=== PATIENT | male | born 1945 | race Caucasian/White ===

== ENCOUNTER 2016-08-02 07:15 | Day surgery (SDC) | payer MEDICARE ==
[2016-08-02] MEDS ORDERED: ceFAZolin 1 GM VIAL ONE ×2 (07:27→07:47)
[2016-08-02] MEDS ORDERED: LACTATED RINGERS 1,000 ML IV ONE (07:43)
[2016-08-02] MEDS ORDERED: fentaNYL 250 MCG/5 ML VIAL IVP ONE (08:21)
[2016-08-02] MEDS ORDERED: MIDAZOLAM 2 MG/2 ML VIAL IVP ONE (08:21)
== END 2016-08-02 07:16 | disposition home or self-care (01) ==
PROC: 0DJD8ZZ Inspection of Lower Intestinal Tract, Via Natural or Artificial Opening Endoscopic (ICD-10-PCS; principal; 2016-08-02 08:30)
DX: Z12.11 Encounter for screening for malignant neoplasm of colon (principal); K64.8 Other hemorrhoids; Z85.46 Personal history of malignant neoplasm of prostate
CPT/HCPCS: G0121; J3010; J7120

== ENCOUNTER 2018-06-17 16:36 | Outpatient (CLI) | payer MEDICARE ==
--- NOTE | 2018-06-17 22:45 | Ultrasound Report ---
Reason: PAIN IN RIGHT LOWER LEG Procedure Date: 06/17/2018 Accession Number: [id number] / [id number] Procedure: US - Duplex Ext Veins Right CPT Code: FULL RESULT: EXAM: RIGHT LOWER EXTREMITY VENOUS ULTRASOUND EXAM DATE: 06/17/2018 05:12 PM. CLINICAL HISTORY: Right lower extremity pain COMPARISON: None. TECHNIQUE: Real-time sonographic vascular imaging was performed by the data integrity consultant through the lower extremity utilizing both color-flow and Doppler spectral analysis. Multiple manufacturers representative static images were saved for review. FINDINGS: Common Femoral Vein (CFV): Normal. CFV-GSV Junction: Normal. Profunda Femoral Vein (PFV): Normal. Femoral Vein (FV) Prox: Normal. Femoral Vein (FV) Mid: Normal. Femoral Vein (FV) Dist: Normal. Popliteal Vein: Normal. Posterior Tibial Veins: Normal. Peroneal Veins: Normal. Other: None. IMPRESSION: No evidence for deep venous thrombosis. RADIA
== END 2018-06-17 16:37 | disposition home or self-care (01) ==
LOC: DI 16:36
PROVIDERS: ATTEND Internal Medicine
DX: M79.661 Pain in right lower leg (principal)

== ENCOUNTER 2018-10-15 | Emergency (ER) | payer MEDICARE ==
[2018-10-15 00:34] LABS: BASOPHILS # (AUTO) 0.1 10^3/uL (0.0-0.1); BASOPHILS % (AUTO) 0.5 %; EOSINOPHILS % (AUTO) 0.1 %; HGB - HEMOGLOBIN 16.4 g/dL (14.0-18.0); LYMPHOCYTES # (AUTO) 0.6 10^3/uL (1.5-3.5); MEAN CORPUSCULAR HEMOGLOBIN 30.9 pg (27.0-31.0); MEAN CORPUSCULAR HGB CONC 34.6 g/dL (32.0-36.0); MEAN CORPUSCULAR VOLUME 89.3 fL (80.0-94.0); MEAN PLATELET VOLUME 7.2 fL (7.4-11.4); MONOCYTES # (AUTO) 0.5 10^3/uL (0.0-1.0); MONOCYTES % (AUTO) 3.3 %; NEUTROPHILS # (AUTO) 12.9 10^3/uL (1.5-6.6); NEUTROPHILS % (AUTO) 92.1 %; PLT - PLATELET COUNT 239 10^3/uL (130-450); RED BLOOD COUNT 5.29 10^6/uL (4.70-6.10); RED CELL DISTRIBUTION WIDTH 13.5 % (12.0-15.0)
--- NOTE | 2018-10-15 00:50 | ED Physician Documentation ---
PD HPI NVD - Stated complaint Stated Complaint: VOMITING - Chief complaint Chief Complaint: Abd Pain - History obtained from History obtained from: Patient - History of Present Illness Timing - onset: Enter time (19:00) Timing - details: Abrupt onset, Waxing and waning Pain level now: 3 Associated symptoms: Abdominal pain (cramping). No: Fever Improved by: No: Eating, Laying still, Vomiting, BM, Position, Meds Worsened by: No: Eating, Moving, Breathing, Position, Palpation Similar symptoms before: Has not had sx before Recently seen: Not recently seen - Additonal information Additional information: since 7 PM, has had waves of nausea, vomiting, and diarrhea with mild abdominal cramping. Review of Systems Constitutional: reports: Reviewed and negative Cardiac: reports: Reviewed and negative Respiratory: reports: Reviewed and negative GI: reports: Abdominal Pain, Nausea, Vomiting, Diarrhea : denies: Dysuria, Frequency Musculoskeletal: reports: Reviewed and negative Neurologic: reports: Reviewed and negative PD PAST MEDICAL HISTORY - Past Medical History Past Medical History: Yes Cardiovascular: Murmur, Valve disorder Respiratory: None Endocrine/Autoimmune: None GI: None : Other HEENT: Chronic vision loss Psych: None Musculoskeletal: None Derm: None - Past Surgical History Past Surgical History: Yes General: Colonoscopy Cardiovascular: Valve replacement - Present Medications Home Medications: Ambulatory Orders Medication Instructions Recorded Confirmed Aspirin [Aspir-Low] 162 mg PO DAILY 10/26/15 10/15/18 Ondansetron Odt [Zofran] 4 mg TL Q6H PRN #10 tablet 10/15/18 - Allergies Allergies/Adverse Reactions: Allergies Allergy/AdvReac Type Severity Reaction Status Date / Time No Known Drug Allergies Allergy Verified 10/15/18 00:09 - Social History Does the pt smoke?: No Smoking Status: Never smoker Does the pt drink ETOH?: No Does the pt have substance abuse?: No - Immunizations Immunizations are current?: Yes - POLST Patient has POLST: No PD ED PE NORMAL - Vitals Vital signs reviewed: Yes - General General: Alert and oriented X 3, No acute distress, Well developed/nourished - HEENT HEENT: Moist mucous membranes - Neck Neck: Supple, no meningeal sign, No JVD - Cardiac Cardiac: RRR, No murmur, No gallop, No rub - Respiratory Respiratory: No respiratory distress, Clear bilaterally - Abdomen Abdomen: Normal bowel sounds, Soft, Non tender, Non distended, No organomegaly - Back Back: No CVA TTP - Extremities Extremities: No edema - Neuro Neuro: Alert and oriented X 3 Results - Vitals Vitals: Oxygen O2 Source Room air - Labs Labs: Laboratory Tests 10/15/18 10/15/18 10/15/18 00:30 00:30 01:45 WBC 14.0 H RBC 5.29 Hgb 16.4 Hct 47.2 MCV 89.3 MCH 30.9 MCHC 34.6 RDW 13.5 Plt Count 239 MPV 7.2 L Neut # (Auto) 12.9 H Lymph # (Auto) 0.6 L [place] # (Auto) 0.5 Eos # (Auto) 0.0 Baso # (Auto) 0.1 Absolute Nucleated RBC 0.00 Nucleated RBC % 0.0 Sodium 135 Potassium 3.9 Chloride 100 L Carbon Dioxide 23 Anion Gap 12.0 BUN 22 H Creatinine 0.9 Estimated GFR (MDRD) 83 L Glucose 117 H Calcium 9.3 Total Bilirubin 1.2 H AST 37 ALT 44 Alkaline Phosphatase 88 Total Protein 7.2 Albumin 4.6 Globulin 2.6 Albumin/Globulin Ratio 1.8 Lipase 26 Urine Color YELLOW Urine Clarity CLEAR Urine pH 7.5 Ur Specific [place] 1.015 Urine Protein TRACE Urine Glucose (UA) NEGATIVE Urine Ketones 40 H Urine Occult Blood NEGATIVE Urine Nitrite NEGATIVE Urine Bilirubin NEGATIVE Urine Urobilinogen 0.2 (NORMAL) Ur Leukocyte Esterase NEGATIVE Ur Microscopic Review NOT INDICATED Urine Culture Comments NOT INDICATED PD MEDICAL DECISION MAKING - ED course Complexity details: reviewed results, re-evaluated patient, considered differential, d/w patient, d/w family Departure - Departure Disposition: 01 Home, Self Care Clinical Impression: Gastroenteritis Condition: Good Instructions: ED Gastroenteritis Viral Follow-Up: Boone Rangel MD [Primary Care Provider] - Prescriptions: Ondansetron Odt [Zofran] 4 mg TL Q6H PRN #10 tablet PRN Reason: Nausea / Vomiting Discharge Date/Time: 10/15/18 02:40
[2018-10-15 01:07] LABS: ALBUMIN 4.6 g/dL (3.2-5.5); ALBUMIN/GLOBULIN RATIO 1.8 (1.0-2.2); BILIRUBIN,TOTAL 1.2 mg/dL (0.2-1.0); CALCIUM 9.3 mg/dL (8.5-10.3); CREATININE 0.9 mg/dL (0.6-1.2); TOTAL PROTEIN 7.2 g/dL (6.7-8.2)
[2018-10-15] MEDS ORDERED: SODIUM CHLORIDE 0.9% 1,000 ML IV STA (01:10)
[2018-10-15] MEDS ORDERED: ONDANSETRON 4 MG/2 ML VIAL IVP STA (01:10)
[2018-10-15 01:54] LABS: BILIRUBIN,URINE NEGATIVE (NEGATIVE); GLUCOSE, URINE (UA) NEGATIVE (NEGATIVE); KETONES,URINE (UA) 40 mg/dL (NEGATIVE); LEUKOCYTE ESTERASE, URINE NEGATIVE (NEGATIVE); NITRITE,URINE NEGATIVE (NEGATIVE); OCCULT BLOOD,URINE NEGATIVE (NEGATIVE); PH,URINE 7.5 PH (5.0-7.5); PROTEIN,URINE TRACE mg/dL (NEGATIVE); UROBILINOGEN,URINE 0.2 (NORMAL) E.U./dL (NORMAL)
[2018-10-15 01:55] LABS: CLARITY,URINE CLEAR (CLEAR)
[2018-10-15] MEDS ORDERED: ONDANSETRON ODT 4 MG Prepack 2 TL STA (02:28)
[2018-10-15 02:40] VITALS: BP 127/64
== END 2018-10-15 02:40 | disposition home or self-care (01) ==
LOC: ED
DX: K52.9 Noninfective gastroenteritis and colitis, unspecified (principal)
CPT/HCPCS: 36415; 80053; 81001; 81003; 83690; 85025; 87086; 96361; 96374; 99283

== ENCOUNTER 2020-07-16 08:46 | Outpatient (CLI) | payer MEDICARE | END 2020-07-16 08:47 | disposition home or self-care (01) | LOC: DI 08:46 | PROVIDERS: ATTEND Internal Medicine Cardiovascular Disease | DX: Z95.2 Presence of prosthetic heart valve (principal) | CPT/HCPCS: 93306 ==

== ENCOUNTER 2020-12-09 11:16 | Outpatient (CLI) | payer MEDICARE ==
[2020-12-09 11:57] LABS: BASOPHILS % (AUTO) 0.6 %; EOSINOPHILS # (AUTO) 0.1 10^3/uL (0.0-0.7); HCT - HEMATOCRIT 47.5 % (42.0-52.0); HGB - HEMOGLOBIN 16.2 g/dL (14.0-18.0); LYMPHOCYTES # (AUTO) 1.7 10^3/uL (1.5-3.5); LYMPHOCYTES % (AUTO) 23.7 %; MEAN CORPUSCULAR HEMOGLOBIN 31.9 pg (27.0-31.0); MEAN CORPUSCULAR HGB CONC 34.1 g/dL (32.0-36.0); MEAN CORPUSCULAR VOLUME 93.5 fL (80.0-94.0); MEAN PLATELET VOLUME 9.5 fL (7.4-11.4); MONOCYTES # (AUTO) 0.7 10^3/uL (0.0-1.0); MONOCYTES % (AUTO) 9.9 %; NEUTROPHILS # (AUTO) 4.5 10^3/uL (1.5-6.6); NEUTROPHILS % (AUTO) 64.5 %; PLT - PLATELET COUNT 196 10^3/uL (130-450); RED BLOOD COUNT 5.08 10^6/uL (4.70-6.10); RED CELL DISTRIBUTION WIDTH 13.1 % (12.0-15.0)
[2020-12-09 12:20] LABS: ALBUMIN 4.7 g/dL (3.2-5.5); ALBUMIN/GLOBULIN RATIO 1.9 (1.0-2.2); BILIRUBIN,TOTAL 0.9 mg/dL (0.2-1.0); CALCIUM 9.8 mg/dL (8.5-10.3); CREATININE 0.8 mg/dL (0.6-1.2); CRP - C-REACTIVE PROTEIN 1.1 mg/dL (0-1.0); POTASSIUM 4.3 mmol/L (3.5-5.0); TOTAL PROTEIN 7.2 g/dL (6.7-8.2)
== END 2020-12-09 11:17 | disposition home or self-care (01) ==
LOC: LAB 11:16
PROVIDERS: ATTEND Family Medicine
DX: R63.4 Abnormal weight loss (principal)
CPT/HCPCS: 36415; 80053; 82150; 83615; 84443; 85025; 86140

== ENCOUNTER 2021-02-15 06:21 | Day surgery (SDC) | payer MEDICARE ==
[2021-02-15] MEDS ORDERED: CEFAZOLIN SODIUM IN 0.9 % NACL 2 GM/100 ML BAG IV ONE (06:23)
[2021-02-15] MEDS ORDERED: LACTATED RINGERS 1,000 ML IV ONE ×2 (06:26→09:10)
--- NOTE | 2021-02-15 07:05 | ANESTHESIA ---
Pre-Anesthesia VS, & Labs - Diagnosis R inguinal hernia - Procedure R inguinal hernia repair Vital Signs: Temp Pulse Resp BP Pulse Ox 36.3 C L 66 14 143/80 H 100 02/15/21 06:32 02/15/21 06:32 02/15/21 06:32 02/15/21 06:32 02/15/21 06:32 Height: 5 ft 9 in Weight (kg): 70 kg Body Mass Index: 22.8 BMI Classification: Healthy weight - NPO >8 hours Last Fluid Intake: coffee this am 0500 - Lab Results Lab results reviewed: Yes Home Medications and Allergies Home Medications: Ambulatory Orders Amoxicillin 1 cap PO DAILY 02/15/21 Aspirin [Aspirin EC] 81 mg PO DAILY 02/10/21 Multivitamin 1 each PO DAILY 02/10/21 Amoxicillin 1 cap PO DAILY 02/15/21 Allergies/Adverse Reactions: Allergies Allergy/AdvReac Type Severity Reaction Status Date / Time No Known Drug Allergies Allergy Verified 10/15/18 00:09 Anes History & Medical History - Anesthetic History Anesthesia Complications: reports: No previous complications Family history of Anesthesia Complications: Denies Family history of Malignant Hyperthermia: Denies - Medical History Cardiovascular: reports: Murmur, Valve disorder Pulmonary: reports: None Gastrointestinal: reports: None Urinary: reports: Other Musculoskeletal: reports: None Endocrine/Autoimmune: reports: None Skin: reports: None Smoking Status: Never smoker - Surgical History General: reports: Colonoscopy Cardiothoracic: reports: Valve replacement Urologic: reports: Prostatic surgery Exam General: Alert, Oriented x3, Cooperative Dental: WNL Mouth Openin Fingerbreadth Neck Mobility: Normal Mallampati classification: II Thyromental Distance: 4-6 cm Respiratory: Lungs clear, Normal breath sounds, No respiratory distress Cardiovascular: Regular rate, No murmurs (faint systolic) Neurological: Normal speech Cognitive Status: Within normal limits Plan Anesthesia Type: General (backup), MAC Consent for Procedure(s) Verified and Reviewed: Yes Code Status: Attempt Resuscitation ASA classification: 3-Severe systemic disease Is this case an emergency?: No
[2021-02-15] MEDS ORDERED: fentaNYL 100 MCG/2 ML VIAL IVP PRN (07:06)
[2021-02-15] MEDS ORDERED: NALOXONE 0.4 MG/ML VIAL IVP PRN (07:06)
[2021-02-15] MEDS ORDERED: HYDROmorphone 0.5 MG/0.5 ML SYRINGE IVP PRN (07:06)
[2021-02-15] MEDS ORDERED: ATROPINE ABBOJECT 1 MG/10 ML SYRINGE IVP PRN (07:06)
[2021-02-15] MEDS ORDERED: ONDANSETRON 4 MG/2 ML VIAL IVP PRN (07:06)
[2021-02-15] MEDS ORDERED: METOCLOPRAMIDE 10 MG/2 ML VIAL IVP PRN (07:06)
[2021-02-15] MEDS ORDERED: MORPHINE 2 MG/ML CARPUJECT IVP PRN (07:06)
[2021-02-15] MEDS ORDERED: ePHEDrine 50 MG/ML VIAL IVP PRN (07:06)
[2021-02-15] MEDS ORDERED: BUPIVACAINE 0.5% PF 10 ML VIAL ONE (07:11)
[2021-02-15] MEDS ORDERED: PROPOFOL 200 MG/20 ML VIAL IVP ONE (07:24)
[2021-02-15] MEDS ORDERED: PROPOFOL 500 MG/50 ML 500 MG/50 ML VIAL ONE (07:24)
[2021-02-15] MEDS ORDERED: BUPIVACAINE 0.5% PF 30 ML VIAL SUBQ ONE ×2 (07:58→08:50)
[2021-02-15] MEDS ORDERED: LACTATED RINGERS 1,000 ML IV SCH (08:00)
[2021-02-15] MEDS ORDERED: MIDAZOLAM 2 MG/2 ML VIAL ONE (08:37)
--- NOTE | 2021-02-15 09:01 | OPERATIVE REPORT ---
Operative Report - General Procedure Date: 02/15/21 Planned Procedure: Right inguinal herniorrhaphy Pre-Op Diagnosis: Right inguinal hernia Procedure Performed: Right direct inguinal herniorrhaphy with mesh Post Op Diagnosis: Right direct inguinal hernia - Procedure Note Primary Surgeon: Jonathon Ortega MD Anesthesia Provider: Mora Luque CRNA IV Fluids (mL): 700 Estimated Blood Loss (mL): 3 Drain/Tube Type: Other (None) Findings: Large direct right inguinal hernia (absence of floor) Complications: None - Other Other Information/Narrative: After verbal and written informed consent was obtained detailing the operation, the alternatives the operation including no operation, risks of infection, bleeding requiring transfusion with its risks, nerve injury, and and after I met with the patient confirming the surgery and the site of surgery, the patient was brought to the operative suite and placed supine on the operating table. Great care was taken to avoid pressure points to prevent pressure necrosis or nerve injury. Monitoring devices were applied along with TEDs and pneumatic compression stockings (to prevent DVT). The patient received preoperative antibiotics for surgical prophylaxis. Mora Luque sedated and anesthetized the patient for the entire procedure. The patient was prepped and draped in the usual sterile manner. With the patient draped my initials were clearly visible. A "time in" then confirmed that the patient was identified with 3 identifiers (name, birthdate, and medical record number), the history and physical was updated and in the chart, the signed consent confirming the procedure was in the chart, the patient was in the correct position, the aforementioned prophylactic measures were in place or given, we had the correct personnel and equipment to complete the procedure and that anesthesia and the surgical team were given an opportunity to express any concerns. With the agreement of everyone in the room we proceeded with the operation. After the inguinal area was injected with half percent Marcaine, anesthetizing the area, a standard inguinal incision was made and dissection was carried down to the external oblique aponeurosis using a combination of Metzenbaum scissors and Bovie electrocautery. The external oblique aponeurosis was cleared of overlying adherent tissue, and the external ring was delineated the external oblique was incised with a scalpel and this incision was carried out to the external ring using Metzenbaum scissors. The external oblique was cut in line with the upper crux of the superficial ring. The external oblique was then dissected from the inguinal contents using finger dissection. A Esha drain was placed around the cord structures at the level of the pubic tubercle to be used for retraction. Adherent cremasteric muscle was dissected free from the cord using Bovie electrocautery. The ilioinguinal nerve was running in front with a genital branch of the genitofemoral nerve running behind the cord and both of these were seen and protected. With primarily blunt dissection the conjoined tendon of the shelving edge of Poupart's ligament were visualized and identified. A Bard mesh PerFix plug (reference #[id number], lot # [id number], use by 2024-10-23) was used to keep the direct inguinal hernia out of my way. The shelving edge was then sewn to the conjoined tendon using 2-0 PDS in interrupted [id number]-[id number] fashion taking care to include some of the mesh. This was done from the pubic tubercle all the way to the internal ring allowing just the tip of my middle finger to be inserted into the internal ring. The onlay patch was then sewn to the pubic tubercle using 0 PDS in a U stitch configuration and used to buttress the repair by sewing to the conjoined tendon superiorly and the shelving edge of Poupart's ligament inferiorly with one single interrupted stitch. The mesh was then brought around the cord contents and sewn to itself thus creating a new internal ring. The external oblique was then approximated using a running 3-0 Vicryl suture. The remaining local anesthesia was injected at this level. Estela's fascia was approximated using 1 interrupted 4-0 Monocryl suture. The skin incision was approximated with 4-0 Monocryl in a subcuticular fashion. The skin was cleaned of its prep and Dermabond was applied. At this point a timeout was performed that confirmed that all counts were correct x2, the procedure that was performed, the blood loss, the IV fluids administered, the patient's condition, and any concerns of the operating team had. Gentle downward traction ensured that the testes were well seated in the scrotum. Having tolerated the procedure well, the patient was taken recovery room in good and stable condition. The plan is for outpatient discharge when the patient is adequately recovered. This document was created in part using voice recognition technology. Because of the inherent limitations of the system, occasional same sounding word substitutions and grammatical errors do occur and persist despite proofreading. Please read this document for content.
--- NOTE | 2021-02-15 09:25 | ANESTHESIA POST OP EVALUATION ---
Anesthesia Post Eval - Post Anesthesia Eval Vitals: Last Vital Signs Temp 36.6 C 02/15/21 09:02 Pulse 65 02/15/21 09:02 Resp 16 02/15/21 09:02 BP 108/56 L 02/15/21 09:02 Pulse Ox 95 02/15/21 09:02 CV Function Including HR & BP: Stable Pain Control: Satisfactory Nausea & Vomiting: Negative Mental Status: Baseline Respiratory Status: Airway Patent Hydration Status: Satisfactory Anesthesia Complications: None
[2021-02-15 10:40] VITALS: BP 128/66
== END 2021-02-15 06:22 | disposition home or self-care (01) ==
LOC: SDS 06:21
PROVIDERS: ATTEND Surgery
DX: K40.90 Unilateral inguinal hernia, without obstruction or gangrene, not specified as recurrent (principal)
CPT/HCPCS: 49505; C1781; J0690; J7120

== ENCOUNTER 2022-02-23 12:23 | Outpatient (CLI) | payer MEDICARE ==
--- NOTE | 2022-02-24 21:17 | Ultrasound Report ---
PROCEDURE: Pelvic Limited or F/U INDICATIONS: LEFT INGUINAL HERNIA TECHNIQUE: Real-time transabdominal scanning was performed of the pelvic organs, with image documentation. COMPARISON: None. FINDINGS: Left inguinal hernia with 1 cm fascial defect. The hernia sac contains only fat and a small volume of fluid at the inferior aspect. No evidence of bowel within the hernia. The hernia is partially reduci ble. IMPRESSION: Partially reducible fat-containing left inguinal hernia. Reviewed by: Stuart Bojorquez MD on 02/24/2022 9:15 PM PDT Approved by: Stuart Bojorquez MD on 02/24/2022 9:15 PM PDT Station ID: [id number]
== END 2022-02-23 12:24 | disposition home or self-care (01) ==
LOC: DI 12:23
PROVIDERS: ATTEND Nurse Practitioner Family
DX: K40.90 Unilateral inguinal hernia, without obstruction or gangrene, not specified as recurrent (principal)

== ENCOUNTER 2022-04-29 10:00 | Day surgery (SDC) | payer MEDICARE ==
[2022-04-29] MEDS ORDERED: CEFAZOLIN 2G/50ML 0.9% NS 2 GM/50 ML BAG IV ONE (10:04)
[2022-04-29] MEDS ORDERED: LACTATED RINGERS 1,000 ML IV ONE ×2 (10:07→16:13)
[2022-04-29] MEDS ORDERED: BUPIVACAINE 0.5% PF 30 ML VIAL ONE (11:53)
[2022-04-29] MEDS ORDERED: NALOXONE 0.4 MG/ML VIAL IVP PRN (13:21)
[2022-04-29] MEDS ORDERED: METOCLOPRAMIDE 10 MG/2 ML VIAL IVP PRN (13:21)
[2022-04-29] MEDS ORDERED: ONDANSETRON 4 MG/2 ML VIAL IVP PRN ×2 (13:21→16:22)
[2022-04-29] MEDS ORDERED: ePHEDrine 50 MG/ML VIAL IVP PRN (13:21)
[2022-04-29] MEDS ORDERED: MORPHINE 2 MG/ML CARPUJECT IVP PRN (13:21)
[2022-04-29] MEDS ORDERED: HYDROmorphone 0.5 MG/0.5 ML SYRINGE IVP PRN ×2 (13:21→16:22)
[2022-04-29] MEDS ORDERED: fentaNYL 100 MCG/2 ML VIAL IVP PRN (13:21)
[2022-04-29] MEDS ORDERED: ATROPINE ABBOJECT 1 MG/10 ML SYRINGE IVP PRN (13:21)
--- NOTE | 2022-04-29 13:21 | ANESTHESIA ---
Pre-Anesthesia VS, & Labs - Diagnosis L inguinal hernia - Procedure L inguinal hernia repair Vital Signs: Temp Pulse Resp BP Pulse Ox O2 Flow Rate 36.3 C L 62 19 146/83 H 98 04/29/22 10:07 04/29/22 10:07 04/29/22 10:07 04/29/22 10:07 04/29/22 10:07 Height: 5 ft 9 in Weight (kg): 70.1 kg Body Mass Index: 22.8 BMI Classification: Normal - NPO >8 hours Home Medications and Allergies Aspirin [Aspirin EC] 2 tab PO DAILY 02/10/21 Allergies/Adverse Reactions: Allergies Allergy/AdvReac Type Severity Reaction Status Date / Time No Known Drug Allergies Allergy Verified 10/15/18 00:09 Anes History & Medical History - Anesthetic History Anesthesia Complications: reports: No previous complications Family history of Anesthesia Complications: Denies Family history of Malignant Hyperthermia: Denies - Medical History Cardiovascular: reports: Murmur, Valve disorder Pulmonary: reports: None Gastrointestinal: reports: None Urinary: reports: Other Musculoskeletal: reports: Osteoarthritis Endocrine/Autoimmune: reports: None Skin: reports: None Smoking Status: Never smoker - Surgical History General: reports: Colonoscopy, Other Cardiothoracic: reports: Valve replacement Urologic: reports: Prostatic surgery Exam General: Alert, Oriented x3, Cooperative Dental: WNL Mouth Openin Fingerbreadth Neck Mobility: Normal Mallampati classification: I Thyromental Distance: 4-6 cm Respiratory: Lungs clear Cardiovascular: Regular rate Plan Anesthesia Type: General Consent for Procedure(s) Verified and Reviewed: Yes Code Status: Attempt Resuscitation ASA classification: 2-Mild systemic disease Is this case an emergency?: No
[2022-04-29] MEDS ORDERED: LACTATED RINGERS 1,000 ML IV SCH (14:00)
[2022-04-29] MEDS ORDERED: ONDANSETRON 4 MG/2 ML VIAL ONE (14:02)
[2022-04-29] MEDS ORDERED: PROPOFOL 500 MG/50 ML 500 MG/50 ML VIAL ONE (14:02)
[2022-04-29] MEDS ORDERED: MIDAZOLAM 2 MG/2 ML VIAL ONE (14:03)
[2022-04-29] MEDS ORDERED: fentaNYL 100 MCG/2 ML VIAL ONE (14:03)
[2022-04-29] MEDS ORDERED: PROPOFOL 200 MG/20 ML VIAL IVP ONE ×2 (14:03→15:25)
[2022-04-29] MEDS ORDERED: ACETAMINOPHEN 1,000 MG/100 ML 1,000 MG/100 ML BAG IV ONE (14:33)
[2022-04-29] MEDS ORDERED: BUPIVACAINE 0.5% PF 30 ML VIAL INFIL ONE (14:53)
[2022-04-29] MEDS ORDERED: GLYCOPYRROLATE 1 MG/5 ML VIAL ONE (15:36)
[2022-04-29] MEDS ORDERED: HYDROcod/ACETAM 5/325 MG TABLET PO PRN (16:22)
--- NOTE | 2022-04-29 16:27 | ANESTHESIA POST OP EVALUATION ---
Anesthesia Post Eval - Post Anesthesia Eval Vitals: Last Vital Signs Temp 36.3 C L 04/29/22 10:07 Pulse 62 04/29/22 16:15 Resp 13 04/29/22 16:15 BP 112/69 04/29/22 16:15 Pulse Ox 100 04/29/22 16:15 O2 Flow Rate CV Function Including HR & BP: Stable Pain Control: Satisfactory Nausea & Vomiting: Negative Mental Status: Baseline Respiratory Status: Airway Patent Hydration Status: Satisfactory Anesthesia Complications: None
--- NOTE | 2022-04-29 16:29 | OPERATIVE REPORT ---
Operative Report - General Procedure Date: 04/29/22 Planned Procedure: Left inguinal herniorrhaphy Pre-Op Diagnosis: Left inguinal hernia Procedure Performed: Left direct inguinal herniorrhaphy without mesh and culture of encountered fluid Post Op Diagnosis: Left direct inguinal hernia and thick green non foul-smelling fluid - Procedure Note Primary Surgeon: Jonathon Ortega MD Anesthesia Provider: SONJA Rachel supervised by Mora Luque CRNA Anesthesia Technique: General LMA, Local (30 mL of half percent Marcaine) IV Fluids (mL): 400 Estimated Blood Loss (mL): 5 Drain/Tube Type: Other (None.) Indications: As above. Complications: I encountered approximately 5 cc of thick green [id number]-wotpdgmg fluid in the inguinal canal during the dissection but I do not feel this represents bowel contents. I do not think this represents a current infection although I did send off aerobic and anaerobic cultures. This is likely a sterile fluid collection. Due to this fluid collection however I opted to repair the hernia without mesh. - Other Other Information/Narrative: After verbal and written informed consent was obtained detailing the operation, the alternatives the operation including no operation, risks of infection, bleeding requiring transfusion with its risks, nerve injury, and and after I met with the patient confirming the surgery and the site of surgery, the patient was brought to the operative suite and placed supine on the operating table. Great care was taken to avoid pressure points to prevent pressure necrosis or nerve injury. Monitoring devices were applied along with TEDs and pneumatic compression stockings (to prevent DVT). The patient received preoperative antibiotics for surgical prophylaxis. SONJA Rachel supervised by Mora Luque CRNA sedated and anesthetized the patient for the entire procedure. The patient was prepped and draped in the usual sterile manner. With the patient draped my initials were clearly visible. A "time in" then confirmed that the patient was identified with 3 identifiers (name, date, and medical record number), the history and physical was updated and in the chart, the signed consent confirming the procedure was in the chart, the patient was in the correct position, the aforementioned prophylactic measures were in place or given, we had the correct personnel and equipment to complete the procedure and that anesthesia and the surgical team were given an opportunity to express any concerns. With the agreement of everyone in the room we proceeded with the operation. After the inguinal area was injected with half percent Marcaine, anesthetizing the area, a standard inguinal incision was made and dissection was carried down to the external oblique aponeurosis using a combination of Metzenbaum scissors and Bovie electrocautery. The external oblique aponeurosis was cleared of overlying adherent tissue, and the external ring was delineated. The external oblique was incised with a scalpel and this incision was carried down to the external ring using Metzenbaum scissors. Care was taken not to injure the ilioinguinal nerve. Having expose the inguinal canal, the cord structures were from the canal using blunt dissection and a Hudson drain was placed around the cord structures at the level of the pubic tubercle. This Hudson drain was then used to retract the cord structures as needed. Adherent cremasteric muscle was dissected free from the cord using Bovie electrocautery. The cord was then explored using a combination of sharp and blunt dissection, and no sac was found. During this dissection a small collection of thick green fluid which was [id number] was encountered. This drained quickly and easily and upon drainage it stopped draining. I ordered a culture aerobic and anaerobic of this. I did not feel that this was bowel contents. I also did not feel that this was an active abscess as the patient was afebrile and asymptomatic. It could represent a sterile fluid collection. The hernia was found coming from the floor the inguinal canal medial to the inferior epigastric vessels. This was dissected back to the hernia opening. The hernia was inverted back into the abdominal cavity and the hernia was repaired with interrupted 2-0 Prolene sutures suturing the conjoined tendon to the shelving edge of Poupart's ligament starting medially and placing interrupted stitches laterally until the internal ring admitted just the tip of my little finger. With good approximation there was still some give in the tissues so a relaxing incision was not employed. The Esha drain was then removed. The wound was irrigated using sterile saline, and hemostasis was obtained using Bovie electrocautery. The incision the external oblique was approximated using 2-0 PDS in a running fashion thus reforming the external ring. Estela's fascia was approximated using interrupted 3-0 Vicryl suture. The skin incision was approximated with 4-0 Monocryl in a subcuticular fashion. The skin was cleaned of its prep and Dermabond was applied. At this point a timeout was performed that confirmed that all counts were correct x2, the procedure that was performed, the blood loss, the IV fluids administered, the patient's condition, and any concerns of the operating team had. Having tolerated the procedure well, the patient was taken recovery room in good and stable condition. Gentle downward traction ensured the testes were well seated in the scrotum. The plan is for outpatient discharge when the patient is adequately recovered. CPT 31047 CPT 91233 This document was created in part using voice recognition technology. Because of the inherent limitations of the system, occasional same sounding word substitutions and grammatical errors do occur and persist despite proofreading. Please read this document for content.
[2022-04-29] MEDS ORDERED: HYDROcod/ACETAM 5/325 MG TABLET ONE (16:57)
[2022-04-29 16:59] VITALS: BP 129/73
== END 2022-04-29 10:01 | disposition home or self-care (01) ==
LOC: SDS 10:00
PROVIDERS: ATTEND Surgery
DX: K40.90 Unilateral inguinal hernia, without obstruction or gangrene, not specified as recurrent (principal)
CPT/HCPCS: 49505; A9270; J0131; J0690; J7120

== ENCOUNTER 2023-04-14 07:00 | Outpatient (CLI) | payer MEDICARE ==
--- NOTE | 2023-04-14 15:37 | XRAY Report ---
PROCEDURE: Toe(s) RT INDICATIONS: RIGHT TOE PAIN TECHNIQUE: 3 views of the right fifth toe(s) acquired. COMPARISON: None. FINDINGS: Bones: No fractures or dislocations. No suspicious bony lesions. Soft tissues: No suspicious soft tissue densities. IMPRESSION: No acute bony abnormality. Reviewed by: Deidra Menchaca MD on 04/14/2023 3:36 PM PST Approved by: Deidra Menchaca MD on 04/14/2023 3:36 PM [facility] Station ID: [id number]
== END 2023-04-14 23:59 | disposition home or self-care (01) ==
LOC: DI.S 07:00
PROVIDERS: ATTEND Emergency Medicine
DX: M79.674 Pain in right toe(s) (principal)

== ENCOUNTER 2023-04-27 07:17 | Outpatient (CLI) | payer MEDICARE ==
[2023-04-27 15:23] LABS: BASOPHILS % (AUTO) 0.5 %; EOSINOPHILS % (AUTO) 0.5 %; HCT - HEMATOCRIT 50.7 % (42.0-52.0); HGB - HEMOGLOBIN 16.3 g/dL (14.0-18.0); LYMPHOCYTES # (AUTO) 1.6 10^3/uL (1.5-3.5); LYMPHOCYTES % (AUTO) 24.2 %; MEAN CORPUSCULAR HGB CONC 32.1 g/dL (32.0-36.0); MEAN CORPUSCULAR VOLUME 96.4 fL (80.0-94.0); MEAN PLATELET VOLUME 10.1 fL (7.4-11.4); MONOCYTES # (AUTO) 0.6 10^3/uL (0.0-1.0); MONOCYTES % (AUTO) 9.6 %; NEUTROPHILS # (AUTO) 4.2 10^3/uL (1.5-6.6); NEUTROPHILS % (AUTO) 64.9 %; PLT - PLATELET COUNT 206 10^3/uL (130-450); RED BLOOD COUNT 5.26 10^6/uL (4.70-6.10); RED CELL DISTRIBUTION WIDTH 13.7 % (12.0-15.0); WHITE BLOOD COUNT 6.5 x10^3/uL (4.8-10.8)
[2023-04-27 15:28] LABS: ALBUMIN 4.7 g/dL (3.2-5.5); ALKALINE PHOSPHATASE 78 IU/L (42-121); ALT ALANINE AMINOTRANSFERASE 22 IU/L (10-60); AST ASPARTATE AMINOTRANSFERASE 25 IU/L (10-42); BILIRUBIN,TOTAL 0.8 mg/dL (0.2-1.0); BUN - BLOOD UREA NITROGEN 19 mg/dL (6-20); CALCIUM 9.7 mg/dL (8.5-10.3); CARBON DIOXIDE - CO2 27 mmol/L (21-32); CHLORIDE 103 mmol/L (101-111); CHOL/HDL RATIO 4.5 (<5.0); CHOLESTEROL 223 mg/dL; CREATININE 0.8 mg/dL (0.6-1.3); GFR - MDRD 94 (>89); GLUCOSE 83 mg/dL (74-104); HDL CHOLESTEROL 50 mg/dL; LDL CHOLESTEROL,CALCULATED 141 mg/dL; LDL/HDL RATIO 2.8 (<3.6); POTASSIUM 4.5 mmol/L (3.5-4.5); SODIUM 136 mmol/L (135-145); TOTAL PROTEIN 7.1 g/dL (6.4-8.9); TRIGLYCERIDES 161 mg/dL (48-352); VLDL CHOLESTEROL 32 mg/dL
[2023-04-27 15:38] LABS: THYROID STIMULATING HORMONE 2.43 uIU/mL (0.34-5.60)
== END 2023-04-27 07:18 | disposition home or self-care (01) ==
LOC: LAB.S 07:17
PROVIDERS: ATTEND Family Medicine
DX: Z01.89 Encounter for other specified special examinations (principal); Z95.2 Presence of prosthetic heart valve; Z85.46 Personal history of malignant neoplasm of prostate; B35.6 Tinea cruris
CPT/HCPCS: 36415; 80053; 80061; 83721; 84153; 84443; 85025

== ENCOUNTER 2023-07-04 07:15 | Outpatient (CLI) | payer MEDICARE ==
[2023-07-04 14:49] LABS: BASOPHILS % (AUTO) 0.7 %; EOSINOPHILS # (AUTO) 0.1 10^3/uL (0.0-0.7); EOSINOPHILS % (AUTO) 1.7 %; HCT - HEMATOCRIT 48.9 % (42.0-52.0); HGB - HEMOGLOBIN 16.1 g/dL (14.0-18.0); LYMPHOCYTES # (AUTO) 1.5 10^3/uL (1.5-3.5); LYMPHOCYTES % (AUTO) 25.3 %; MEAN CORPUSCULAR HEMOGLOBIN 31.6 pg (27.0-31.0); MEAN CORPUSCULAR HGB CONC 32.9 g/dL (32.0-36.0); MEAN CORPUSCULAR VOLUME 95.9 fL (80.0-94.0); MEAN PLATELET VOLUME 10.2 fL (7.4-11.4); MONOCYTES # (AUTO) 0.6 10^3/uL (0.0-1.0); MONOCYTES % (AUTO) 10.8 %; NEUTROPHILS # (AUTO) 3.5 10^3/uL (1.5-6.6); NEUTROPHILS % (AUTO) 61.2 %; PLT - PLATELET COUNT 200 10^3/uL (130-450); RED CELL DISTRIBUTION WIDTH 13.1 % (12.0-15.0); WHITE BLOOD COUNT 5.7 x10^3/uL (4.8-10.8)
[2023-07-04 16:23] LABS: ALBUMIN 4.5 g/dL (3.2-5.5); ALBUMIN/GLOBULIN RATIO 1.9 (1.0-2.2); ALKALINE PHOSPHATASE 69 IU/L (42-121); ALT ALANINE AMINOTRANSFERASE 24 IU/L (10-60); AST ASPARTATE AMINOTRANSFERASE 25 IU/L (10-42); BILIRUBIN,TOTAL 0.8 mg/dL (0.2-1.0); BUN - BLOOD UREA NITROGEN 15 mg/dL (6-20); CALCIUM 9.5 mg/dL (8.5-10.3); CARBON DIOXIDE - CO2 29 mmol/L (21-32); CHLORIDE 104 mmol/L (101-111); CHOL/HDL RATIO 3.4 (<5.0); CHOLESTEROL 162 mg/dL; CREATININE 0.8 mg/dL (0.6-1.3); GFR - MDRD 94 (>89); GLUCOSE 84 mg/dL (74-104); HDL CHOLESTEROL 48 mg/dL; LDL CHOLESTEROL,CALCULATED 86 mg/dL; LDL/HDL RATIO 1.8 (<3.6); POTASSIUM 4.1 mmol/L (3.5-4.5); SODIUM 138 mmol/L (135-145); TOTAL PROTEIN 6.9 g/dL (6.4-8.9); TRIGLYCERIDES 142 mg/dL (48-352); VLDL CHOLESTEROL 28 mg/dL
== END 2023-07-04 07:16 | disposition home or self-care (01) ==
LOC: LAB.S 07:15
PROVIDERS: ATTEND Family Medicine
DX: Z01.89 Encounter for other specified special examinations (principal); B35.6 Tinea cruris; Z95.2 Presence of prosthetic heart valve; Z85.46 Personal history of malignant neoplasm of prostate
CPT/HCPCS: 36415; 80053; 80061; 83721; 84153; 84443; 85025

== ENCOUNTER 2023-09-29 13:37 | Outpatient (CLI) | payer MEDICARE ==
--- NOTE | 2023-09-29 14:17 | XRAY Report ---
PROCEDURE: Chest 2V INDICATIONS: COUGH/CHEST CONGESTION TECHNIQUE: 2 views of the chest were acquired. COMPARISON: 10/26/2015. FINDINGS: Surgical changes and devices: Median sternotomy wires and prosthetic heart valve are seen. Lungs and pleura: No pleural effusions or pneumothorax. Lungs are clear. Mediastinum: Mediastinal contours appear normal. Heart size is normal. Bones and chest wall: No suspicious bony lesions. Overlying soft tissues appear unremarkable. IMPRESSION: No acute cardiopulmonary process. Reviewed by: Zac Rodrigues MD on 09/29/2023 2:16 PM PDT Approved by: Zac Rodrigues MD on 09/29/2023 2:16 PM PDT Station ID: [id number]
== END 2023-09-29 23:59 | disposition home or self-care (01) ==
LOC: DI.S 13:37
PROVIDERS: ATTEND Physician Assistant Medical
DX: R05.8 Other specified cough (principal); R09.89 Other specified symptoms and signs involving the circulatory and respiratory systems